=== PATIENT | male | born 1970 | race African-American/Black ===

== ENCOUNTER 2017-06-23 16:29 | Emergency (ER) | payer BC ==
[~2017-06-23] VITALS: Ht 170.2 cm; Wt 100.0 kg
[~2017-06-23 16:29] MED LIST: Z.0.NO CURRENT MEDS
[2017-06-23 16:33] VITALS: BP 148/77; PULSE 74; RESP 16; TEMP 98.7; O2SAT 100
--- NOTE | 2017-06-23 17:42 | PD ---
HPI Chief Complaint: Abdominal Pain Time Seen by Provider: 17:42 Travel History International Travel<30 days: No Contact w/Intl Traveler<30days: No Traveled to known affect area: No History of Present Illness HPI 46-year-old male came to the emergency room with history of epigastric pain that has been for past 1 week. Patient points to his exact epigastric area with no radiation of the pain. Says the pain is dull. It's worse after he eats. Currently he still has the pain. No history of nausea vomiting. He has had this kind of pain in the past and was diagnosed with gastritis. He is a smoker and drinks alcohol on weekends. His vital signs were stable. [facility] Past Medical History Narrative Medical List of his past medical, surgical, social and family history as reviewed from the nursing note. Diminished Hearing: No Immunizations Current: Yes Social History Alcohol Use: Yes (WEEKENDS) Tobacco Use: Yes (/ PPD) Substance Use: Yes (MARIJUANA X2/DAY) Allergies-Medications (Allergen,Severity, Reaction): Coded Allergies: No Known Allergies (Verified Adverse Reaction, Unknown, 06/23/17) Comments No known drug allergies. Reported Meds & Prescriptions Reported Meds & Active Scripts Active Ultram (Tramadol HCl) 50 Mg Tab 50 Mg PO Q6H PRN Reported Lisinopril 10 Mg Tab 10 Mg PO DAILY Amlodipine (Amlodipine Besylate) 2.5 Mg Tab 2.5 Mg PO DAILY Bystolic (Nebivolol) 5 Mg Tab 5 Mg PO DAILY Metformin (Metformin HCl) 500 Mg Tab 500 Mg PO BIDPC Nexium (Esomeprazole DR) 40 Mg Capdr 40 Mg PO DAILY Narrative Medication List of his home medications reviewed from the nursing note. Review of Systems Except as stated in HPI: all other systems reviewed are Neg Gastrointestinal: Positive: Abdominal Pain Physical Exam Narrative GENERAL: Awake, alert, anxious, moderate distress SKIN: Focused skin assessment warm/dry. HEAD: Atraumatic. Normocephalic. EYES: Pupils equal and round. No scleral icterus. No injection or drainage. ENT: No nasal bleeding or discharge. Mucous membranes pink and moist. NECK: Trachea midline. No JVD. CARDIOVASCULAR: Regular rate and rhythm. No murmur appreciated. RESPIRATORY: No accessory muscle use. Clear to auscultation. Breath sounds equal bilaterally. GASTROINTESTINAL: Abdomen soft, non-tender, nondistended. Hepatic and splenic margins not palpable. MUSCULOSKELETAL: No obvious deformities. No clubbing. No cyanosis. No edema. NEUROLOGICAL: Awake and alert. No obvious cranial nerve deficits. Motor grossly within normal limits. Normal speech. PSYCHIATRIC: Appropriate mood and affect; insight and judgment normal. Data Data Last Documented VS Orders Orders Complete Blood Count With Diff (06/23/17 17:55) Comprehensive Metabolic Panel (06/23/17 17:55) Lipase (06/23/17 17:55) Us Abdomen Gallbladder (06/23/17 ) Iv Access Insert/Monitor (06/23/17 17:55) Ecg Monitoring (06/23/17 17:55) Oximetry (06/23/17 17:55) Sodium Chloride 0.9% Flush (Ns Flush) (06/23/17 18:00) Pantoprazole Inj (Protonix Inj) (06/23/17 18:00) Sodium Chlor 0.9% 1000 Ml Inj (Ns 1000 M (06/23/17 18:00) Electrocardiogram (06/23/17 ) Troponin I (06/23/17 18:07) Ct Abd/Pel W Iv Contrast(Rout) (06/23/17 ) Oral Contrast - Adult (06/23/17 19:37) Diatrizoate Liq ( Gastrodaiana Liq) (06/23/17 19:50) Iohexol 350 Inj (Omnipaque 350 Inj) (06/23/17 21:01) Ed Discharge Order (06/23/17 22:08) Labs Laboratory Tests Test 06/23/17 19:10 White Blood Count 8.8 TH/MM3 Red Blood Count 4.78 MIL/MM3 Hemoglobin 12.7 GM/DL Hematocrit 39.0 % Mean Corpuscular Volume 81.7 FL Mean Corpuscular Hemoglobin 26.6 PG Mean Corpuscular Hemoglobin Concent 32.5 % Red Cell Distribution Width 13.8 % Platelet Count 203 TH/MM3 Mean Platelet Volume 9.2 FL Neutrophils (%) (Auto) 51.2 % Lymphocytes (%) (Auto) 39.4 % Monocytes (%) (Auto) 7.2 % Eosinophils (%) (Auto) 1.1 % Basophils (%) (Auto) 1.1 % Neutrophils # (Auto) 4.5 TH/MM3 Lymphocytes # (Auto) 3.5 TH/MM3 Monocytes # (Auto) 0.6 TH/MM3 Eosinophils # (Auto) 0.1 TH/MM3 Basophils # (Auto) 0.1 TH/MM3 CBC Comment DIFF FINAL Differential Comment Blood Urea Nitrogen 11 MG/DL Creatinine 0.85 MG/DL Random Glucose 98 MG/DL Total Protein 8.2 GM/DL Albumin 3.8 GM/DL Calcium Level 8.9 MG/DL Alkaline Phosphatase 41 U/L Aspartate Amino Transf (AST/SGOT) 18 U/L Alanine Aminotransferase (ALT/SGPT) 29 U/L Total Bilirubin 0.4 MG/DL Sodium Level 138 MEQ/L Potassium Level 3.7 MEQ/L Chloride Level 105 MEQ/L Carbon Dioxide Level 27.1 MEQ/L Anion Gap 6 MEQ/L Estimat Glomerular Filtration Rate 119 ML/MIN Troponin I LESS THAN 0.02 NG/ML Lipase 627 U/L MDM Medical Decision Making Medical Screen Exam Complete: Yes Emergency Medical Condition: Yes Medical Record Reviewed: Yes Differential Diagnosis Acute gastritis, acute pancreatitis, acute cholecystitis, ACS Narrative Course 6:07 PM awaiting for the blood test result and ultrasound of the gallbladder to be done and resulted. Patient was given IV fluid bolus and IV Protonix. 6:50 PM the ultrasound has been done and resulted. As per the radiologist report there is a mass that looks hyperechoic once the head of the pancreas. They recommended a CT which has been ordered. Awaiting for the CT and blood test result. Case will be signed over to the oncoming ER physician. Procedures EKG Prior to Arrival: No Scripts Tramadol (Ultram) 50 Mg Tab 50 MG PO Q6H Y for PAIN, #20 TAB 0 Refills Prov: Dayne Pizano MD 06/23/17 Lisbet Renee MD Jun 23, 2017 17:42
[2017-06-23] MEDS ORDERED: PANTOPRAZOLE SODIUM 40 MG VIAL IV PUSH ONE (18:00)
[2017-06-23] MEDS ORDERED: SODIUM CHLOR 0.9% 1000 ML INJ 1,000 ML IV ONE (18:00)
[2017-06-23] MEDS ORDERED: SODIUM CHLORIDE 0.9% FLUSH 10 ML FLUSH IV FLUSH PRN (18:00)
[2017-06-23] MEDS ORDERED: AMLO2.5T PO (18:33)
[2017-06-23] MEDS ORDERED: NEXI40CA PO (18:33)
[2017-06-23] MEDS ORDERED: METF500T PO (18:33)
[2017-06-23] MEDS ORDERED: BYST5TAB2 PO (18:33)
[2017-06-23] MEDS ORDERED: LISI10TA3 PO (18:33)
--- NOTE | 2017-06-23 18:34 | RADRPT ---
EXAM DATE/TIME: 06/23/2017 18:08 [facility] COMPARISON: No previous studies available for comparison. INDICATIONS : Right upper quadrant pain. MEDICAL HISTORY : Right upper quadrant pain. Tobacco use. Substance use. SURGICAL HISTORY : None. ENCOUNTER: Initial ACUITY: 1 week PAIN SCORE: 7/10 LOCATION: Right upper quadrant MEASUREMENTS: LIVER: 15.7 cm length COMMON DUCT: 6 mm RIGHT KIDNEY: 11.1 x 4.4 x 4.8 cm FINDINGS: LIVER: This and increased echogenicity of the liver parenchyma. No dilated biliary ducts. No evidence of asc ites. The portal system is patent. COMMON DUCT: No intraluminal mass or stone visualized. GALLBLADDER: Contains no stones, demonstrates no wall thickening or pericholecystic fluid. PANCREAS: Is a limited visualization of pancreas. However there appears to be a hypoechoic masslike area near t he head/neck of the pancreas measuring approximately 3 x 2.7 cm. RIGHT KIDNEY: No evidence of hydronephrosis, stone, or mass. CONCLUSION: 1. Limited visualization the pancreas. However, there appears to be a hypoechoic masslike area near t he head/neck of the pancreas measuring approximately 3.0 x 2.[address] scan of the abdomen /pelvis with oral and IV contrast. 2. No evidence of gallstones or biliary tract obstruction. Khoi Sr MD on June 23, 2017 at 18:29 Board Certified Radiologist. This report was verified electronically.
[2017-06-23 19:05] VITALS: BP 119/76; PULSE 69; RESP 16; O2SAT 99
[2017-06-23 19:36] LABS: AUTOMATED NEUTROPHIL # 4.5 TH/MM3 (1.8-7.7); BASOPHIL # 0.1 TH/MM3 (0-0.2); BASOPHIL % 1.1 % (0.0-2.0); EOSINOPHIL # 0.1 TH/MM3 (0-0.4); EOSINOPHIL % 1.1 % (0.0-4.0); HEMOGLOBIN 12.7 GM/DL (13.0-17.0); LYMPH % 39.4 % (9.0-44.0); LYMPHOCYTE # 3.5 TH/MM3 (1.0-4.8); MEAN CELL VOLUME 81.7 FL (80.0-100.0); MEAN CORPUSCULAR HEMOGLOBIN 26.6 PG (27.0-34.0); MEAN CORPUSCULAR HGB CONC 32.5 % (32.0-36.0); MEAN PLATELET VOLUME 9.2 FL (7.0-11.0); MONO % 7.2 % (0.0-8.0); MONOCYTE # 0.6 TH/MM3 (0-0.9); NEUT % 51.2 % (16.0-70.0); PLATELET COUNT 203 TH/MM3 (150-450); RED BLOOD COUNT 4.78 MIL/MM3 (4.50-5.90); RED CELL DISTRIBUTION WIDTH 13.8 % (11.6-17.2); WHITE BLOOD COUNT 8.8 TH/MM3 (4.0-11.0)
[2017-06-23 19:47] LABS: CHLORIDE 105 MEQ/L (98-107); SODIUM (NA) 138 MEQ/L (136-145)
[2017-06-23 19:50] LABS: CALCIUM 8.9 MG/DL (8.5-10.1)
[2017-06-23] MEDS ORDERED: DIATRIZOATE MEGLUM/DIATRIZOATE SOD 9 ML CUP ONE (19:50)
[2017-06-23 19:51] LABS: ALBUMIN 3.8 GM/DL (3.4-5.0); BICARBONATE 27.1 MEQ/L (21.0-32.0); BLOOD UREA NITROGEN 11 MG/DL (7-18); GLUCOSE,RANDOM 98 MG/DL (74-106)
[2017-06-23 19:54] LABS: ALT (GPT) 29 U/L (12-78); AST (GOT) 18 U/L (15-37); CREATININE 0.85 MG/DL (0.60-1.30); GLOMERULAR FILTRATION RATE 119 ML/MIN (>89)
[2017-06-23 19:55] LABS: TOTAL BILIRUBIN ADULT 0.4 MG/DL (0.2-1.0); TOTAL PROTEIN 8.2 GM/DL (6.4-8.2)
[2017-06-23 19:56] LABS: ALKALINE PHOSPHATASE 41 U/L (45-117)
[2017-06-23 20:05] VITALS: RESP 16; O2SAT 99
[2017-06-23 20:40] VITALS: BP 139/88; PULSE 67; RESP 16; O2SAT 100
[2017-06-23] MEDS ORDERED: IOHEXOL 350 MG/ML 10 ML VIAL (for RAD DIAG) IVCONTRAST ONE (21:01)
--- NOTE | 2017-06-23 21:13 | PD ---
Physical Exam Narrative Patient was seen by ED physician and signed out to me. Data Data Last Documented VS Vital Signs Date Time Temp Pulse Resp B/P (MAP) Pulse Ox O2 Delivery O2 Flow Rate FiO2 06/23/17 20:05 16 99 Room Air 06/23/17 19:05 69 06/23/17 16:33 98.7 Orders Orders Complete Blood Count With Diff (06/23/17 17:55) Comprehensive Metabolic Panel (06/23/17 17:55) Lipase (06/23/17 17:55) Us Abdomen Gallbladder (06/23/17 ) Iv Access Insert/Monitor (06/23/17 17:55) Ecg Monitoring (06/23/17 17:55) Oximetry (06/23/17 17:55) Sodium Chloride 0.9% Flush (Ns Flush) (06/23/17 18:00) Pantoprazole Inj (Protonix Inj) (06/23/17 18:00) Sodium Chlor 0.9% 1000 Ml Inj (Ns 1000 M (06/23/17 18:00) Electrocardiogram (06/23/17 ) Troponin I (06/23/17 18:07) Ct Abd/Pel W Iv Contrast(Rout) (06/23/17 ) Oral Contrast - Adult (06/23/17 19:37) Diatrizoate Liq ( Gastroview Liq) (06/23/17 19:50) Iohexol 350 Inj (Omnipaque 350 Inj) (06/23/17 21:01) Ed Discharge Order (06/23/17 22:08) Labs Laboratory Tests Test 06/23/17 19:10 White Blood Count 8.8 TH/MM3 Red Blood Count 4.78 MIL/MM3 Hemoglobin 12.7 GM/DL Hematocrit 39.0 % Mean Corpuscular Volume 81.7 FL Mean Corpuscular Hemoglobin 26.6 PG Mean Corpuscular Hemoglobin Concent 32.5 % Red Cell Distribution Width 13.8 % Platelet Count 203 TH/MM3 Mean Platelet Volume 9.2 FL Neutrophils (%) (Auto) 51.2 % Lymphocytes (%) (Auto) 39.4 % Monocytes (%) (Auto) 7.2 % Eosinophils (%) (Auto) 1.1 % Basophils (%) (Auto) 1.1 % Neutrophils # (Auto) 4.5 TH/MM3 Lymphocytes # (Auto) 3.5 TH/MM3 Monocytes # (Auto) 0.6 TH/MM3 Eosinophils # (Auto) 0.1 TH/MM3 Basophils # (Auto) 0.1 TH/MM3 CBC Comment DIFF FINAL Differential Comment Blood Urea Nitrogen 11 MG/DL Creatinine 0.85 MG/DL Random Glucose 98 MG/DL Total Protein 8.2 GM/DL Albumin 3.8 GM/DL Calcium Level 8.9 MG/DL Alkaline Phosphatase 41 U/L Aspartate Amino Transf (AST/SGOT) 18 U/L Alanine Aminotransferase (ALT/SGPT) 29 U/L Total Bilirubin 0.4 MG/DL Sodium Level 138 MEQ/L Potassium Level 3.7 MEQ/L Chloride Level 105 MEQ/L Carbon Dioxide Level 27.1 MEQ/L Anion Gap 6 MEQ/L Estimat Glomerular Filtration Rate 119 ML/MIN Troponin I LESS THAN 0.02 NG/ML Lipase 627 U/L [facility] Supervised Visit with RENALDO: No Interpretation(s) Last Impressions Gall Bladder Ultrasound 06/23/17 0000 Signed Impressions: Service Date/Time: Friday, June 23, 2017 18:08 - CONCLUSION: 1. Limited visualization the pancreas. However, there appears to be a hypoechoic masslike area near the head/neck of the pancreas measuring approximately 3.0 x 2.[address] scan of the abdomen/pelvis with oral and IV contrast. 2. No evidence of gallstones or biliary tract obstruction. Khoi Sr MD 21:12 PM. CBC within normal limit. CMP within normal limits. Lipase 627. 22:[address] scan abdomen pelvis shows acute pancreatitis. No pancreatic mass. Diagnosis Primary Impression: Acute pancreatitis Qualified Codes: K85.20 - Alcohol induced acute pancreatitis without necrosis or infection Patient Instructions: General Instructions Additional Instruction: Take medication as directed. Avoid alcohol. Follow-up with personal physician and GI specialist. Return if worse. Med/Other Pt SpecificInfo: Prescription(s) given Scripts Tramadol (Ultram) 50 Mg Tab 50 MG PO Q6H Y for PAIN, #20 TAB 0 Refills Prov: Dayne Pizano MD 06/23/17 Disposition: 01 DISCHARGE HOME Condition: Stable Dayne Pizano MD Jun 23, 2017 21:13
--- NOTE | 2017-06-23 21:17 | RADRPT ---
EXAM DATE/TIME: 06/23/2017 20:57 [facility] COMPARISON: US ABDOMEN - GALLBLADDER, June 23, 2017, 18:08. INDICATIONS : Epigastric pain. Abnormal ultrasound results. IV CONTRAST: 75 cc Omnipaque 350 (iohexol) IV ORAL CONTRAST: Prescribed oral contrast ingested. RADIATION DOSE: 19.56 CTDIvol (mGy) MEDICAL HISTORY : Diabetes mellitus type 2. Hypertension. Gastroesophageal reflux disease. SURGICAL HISTORY : None. ENCOUNTER: Initial ACUITY: 1 week PAIN SCALE: 7/10 LOCATION: Bilateral upper quadrant TECHNIQUE: Volumetric scanning of the abdomen and pelvis was performed. Using automated exposure control and ad justment of the mA and/or kV according to patient size, radiation dose was kept as low as reasonably achievable to obtain optimal diagnostic quality images. DICOM format image data is available electro nically for review and comparison. FINDINGS: LOWER LUNGS: The visualized lower lungs are clear. LIVER: Homogeneous density without lesion. There is no dilation of the biliary tree. No calcified gallston es. SPLEEN: Normal size without lesion. PANCREAS: The pancreas is normal in size. No focal mass is demonstrated. The finding on the recent ultrasound i s most likely an adjacent loop of bowel. The margins of the pancreas are mildly fuzzy suggesting poss ibly some inflammation such as pancreatitis. No free fluid is seen. This needs to be correlated with patient's laboratory values. KIDNEYS: Normal in size and shape. There is no mass, stone or hydronephrosis. ADRENAL GLANDS: Within normal limits. VASCULAR: There is no aortic aneurysm. BOWEL/MESENTERY: The stomach, small bowel, and colon demonstrate no acute abnormality. There is no free intraperitone al air or fluid. The appendix is unremarkable. No inflammatory changes. ABDOMINAL WALL: Within normal limits. RETROPERITONEUM: There is no lymphadenopathy. BLADDER: No wall thickening or mass. REPRODUCTIVE: Within normal limits. INGUINAL: There is no lymphadenopathy or hernia. MUSCULOSKELETAL: Within normal limits for patient age. CONCLUSION: 1. There is a suggestion of some inflammatory type changes involving the pancreas suggestive of pancr eatitis. Recommend correlation with laboratory values such as amylase and lipase. 2. The focal abnormality noted on the recent ultrasound, was most likely a loop of bowel adjacent to the pancreas. No focal pancreatic mass is seen. 3. Otherwise, the rest examination is unremarkable. Khoi Sr MD on June 23, 2017 at 21:09 Board Certified Radiologist. This report was verified electronically.
[2017-06-23] MEDS ORDERED: TRAM50 PO (22:11)
[2017-06-23 22:15] VITALS: BP 147/90; PULSE 78; RESP 18; O2SAT 99
--- NOTE | 2017-06-24 14:32 | EKG ---
Date Performed: 06/23/2017 Time Performed: 19:06:16 PTAGE: 46 years EKG: Sinus rhythm POSSIBLE LEFT VENTRICULAR HYPERTROPHY ABNORMAL ECG NO PREVIOUS TRACING DOCTOR: Jolanta Rehman Interpretating Date/Time 06/24/2017 14:29:43
== END 2017-06-23 22:30 | disposition home or self-care (01) ==
LOC: PHED 16:29
DX: K85.20 Alcohol induced acute pancreatitis without necrosis or infection (principal); F17.210 Nicotine dependence, cigarettes, uncomplicated
CPT/HCPCS: 74177; 76705; 80053; 83690; 84484; 85025; 93005; 96361; 96374; 99285; C9113; J7030; Q9963; Q9967